=== PATIENT | female | born 1960 | race Caucasian/White ===

== ENCOUNTER 2017-11-28 02:31 | Day surgery (SDC) | payer BC ==
[2017-10-18 12:07] VITALS: Ht 170.2 cm; Wt 76.7 kg
[2017-11-28] VITALS (8 sets, daily range): BP systolic 110–127; BP diastolic 64–96
[~2017-11-28] VITALS: Ht 170.2 cm; Wt 76.7 kg
[~2017-11-28 02:31] MED LIST: ASPI81TA86 PO; CELE-1 PO; DIAZ-308 PO; HYDR-4308 PO
--- NOTE | 2017-11-28 04:33 | LEVENE H&P ---
DATE OF ADMISSION: November 28, 2017 IDENTIFICATION/CHIEF COMPLAINT The patient is a 57-year-old woman with a chief complaint of left knee stiffness after knee replacement. HISTORY OF PRESENT ILLNESS The patient underwent uncomplicated left total knee replacement 6 weeks ago. She has generally done well, but has stalled on her ability to gain further flexion of the knee in therapy. Manipulation is indicated to improve range of motion and reduce pain in therapy. PAST MEDICAL HISTORY Notable for generally good health. ALLERGIES She has no known drug allergies. CURRENT MEDICATIONS She takes only a variety of vitamins plus Mobic 15 mg p.o. daily. PAST SURGICAL HISTORY Notable for the above-noted knee replacement, breast implants and toe operation. FAMILY HISTORY Noncontributory. SOCIAL HISTORY Negative for tobacco use. She drinks alcohol socially. REVIEW OF SYSTEMS Negative. PHYSICAL EXAMINATION GENERAL: This is a well-developed, well-nourished female who appears stated age. HEENT: Normocephalic, atraumatic. NECK: Supple. LUNGS: Clear. HEART: Regular. ABDOMEN: Soft. ORTHOPEDIC EXAMINATION: The left knee has a well-healed surgical scar. Ligament balance is good. Patella tracks well. There is no undue swelling. Motion is from 2 to 90 degrees. Calves nontender. Neurovascular function is intact. RADIOGRAPHIC DATA Radiographs demonstrate good component alignment with good sizes, no implant loosening, migration or failure. 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 PLAN Will go ahead and proceed with manipulation under anesthesia and injection of local anesthetic. Rationale for this procedure, risks, benefits, the nonoperative alternatives were reviewed. The risks include but are not limited to , major medical or anesthetic complication, infection, neurovascular injury, fracture, tendon rupture, hemarthrosis, persistent or recurrent stiffness, need for additional procedure and other unforeseen. She understands and wishes to proceed. A signed permit is placed in the chart. No guarantees are given or implied. [facility]
[2017-11-28] MEDS ORDERED: ceFAZolin(*) 1 GM VIAL 1 GM in NS(*) 0.9% 100 ML ADDVANT BAG 100 ML IVPB ONE (06:00)
[2017-11-28] MEDS ORDERED: CELECOXIB 200 MG CAP PO ONE ×2 (06:00)
[2017-11-28] MEDS ORDERED: NORMOSOL R SOLN(*) 1000 ML BAG 1,000 ML IV PRN (06:00)
[2017-11-28] MEDS ORDERED: FAMOTIDINE 20 MG TAB PO ONE (06:00)
[2017-11-28] MEDS ORDERED: MIDAZOLAM 2 MG/2 ML VIAL IVP PRN (06:00)
[2017-11-28] MEDS ORDERED: LIDOCAINE/SOD BICARB 8.4% SYR ID ONE (06:00)
[2017-11-28] MEDS ORDERED: LIDOCAINE MPF 1% 5 ML VIAL ONE (06:49)
[2017-11-28] MEDS ORDERED: PROPOFOL EMUL(*) 10MG/ML 20 ML 40 ML ONE (06:49)
[2017-11-28] MEDS ORDERED: BUPIVACAINE/EPI 0.5% 50ML VIAL INFIL ONE (06:57)
[2017-11-28] MEDS ORDERED: HYDR-4308 PO (07:31)
[2017-11-28] MEDS ORDERED: APAP/HYDROCODONE 325/7.5 TAB PO ONE (08:00)
--- NOTE | 2017-11-29 04:08 | OPERATIVE REPORT 1 ---
EVENT DATE: November 28, 2017 SURGEON: Jordan Adams MD ANESTHESIOLOGIST: Rolan Golden MD ANESTHESIA: General. REHABILITATION SERVICES AIDE: None. 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 PROCEDURE PERFORMED Left knee manipulation under anesthesia and injection of local anesthetic. ESTIMATED BLOOD LOSS None. DRAINS None. SPECIMENS None. COMPLICATIONS No apparent. INDICATIONS Antonia is 6 weeks out from knee arthroplasty. She is stalled at 90 degrees of flexion, is battling and not making any progress with therapy. Manipulation is indicated to improve range of motion and facilitate further rehab. DESCRIPTION OF PROCEDURE Patient was taken to the operating room, placed supine on the operating table. Anesthesia was induced, and exam under anesthesia confirms motion of 0 to 90. The scar is massaged, patella is mobilized, and then hand is placed over the proximal tibia and gentle flexion force is applied. Adhesions are felt to lyse , and the knee is easily brought up to 135 degrees of flexion with no undue force. Extension is full. Ligament balance is good. There has been no compromise of stability or balance during the procedure. The skin is then sterilely prepped with alcohol, and the knee is infiltrated with 20 mL of 0.5% Marcaine with epinephrine. The patient is awakened from anesthesia and taken to the recovery room in stable condition, having tolerated the procedure well. Plan is for arthrofibrosis rehab protocol. [facility]
== END 2017-11-28 08:37 | disposition home or self-care (01) ==
LOC: OR 02:31
PROVIDERS: ATTEND Orthopaedic Surgery
DX: M24.662 Ankylosis, left knee (principal)
CPT/HCPCS: 27570; J0690; J2001; J2704; J7050